=== PATIENT | male | born 1970 | race African-American/Black ===

== ENCOUNTER 2023-01-06 13:01 | Emergency (ER) | payer MEDICAID ==
[~2023-01-06] VITALS: Ht 182.9 cm; Wt 91.0 kg
[2023-01-06 13:08] VITALS: BP 148/72
[2023-01-06 16:35] LABS: HEMATOCRIT. 41.2 % (42.0-52.0); HEMOGLOBIN. 13.2 g/dL (14.0-18.0); MEAN CORPUSCULAR HEMOGLOBIN 27.4 pg (28.0-32.0); MEAN CORPUSCULAR VOLUME 85.3 fL (80.0-94.0); MEAN PLATELET VOLUME 8.6 fl (7.4-10.4); PLATELET 236 x1000/uL (130-400); RED BLOOD CELL COUNT 4.83 mill/uL (4.7-6.1)
[2023-01-06 16:42] LABS: CHLORIDE 105 mEq/L (98-107)
[2023-01-06 17:10] LABS: PLATELET ESTIMATE NORMAL
== END 2023-01-06 17:49 | disposition home or self-care (01) ==
LOC: ER 13:01
DX: R21 Rash and other nonspecific skin eruption (principal)
CPT/HCPCS: 36415; 80053; 85025; 99283